=== PATIENT | male | born 1935 | race Caucasian/White ===

== ENCOUNTER 2018-06-07 11:36 | Emergency (ER) | payer OTHER ==
[2018-06-07] MEDS ORDERED: DIAZEPAM 2 MG TABLET ONE (12:48)
--- NOTE | 2018-06-07 13:22 | EDPHYS ---
Physician Documentation [facility] Name: Jagdish Preston Age: 82 yrs Sex: Male : 1935 Arrival Date: 06/07/2018 Time: 11:39 Bed 15 Private MD: ED Physician Stefaon Serna HPI: 06/07 12:36 This 82 yrs old Male presents to ER via Ambulatory with complaints of pm1 Anxiety, Urinary Problem. 12:36 The patient presents to the emergency department with anxiety, over upcoming radiation pm1 therapy for prostate cancer. Onset: The symptoms/episode began/occurred 1 year(s) ago. Past psychiatric history: Prior diagnosis: Anxiety, Psychiatric medications include: Zoloft. Associated signs and symptoms: Pertinent negatives: abdominal pain, chest pain, fever, headache, nausea, shortness of breath, vomiting. Severity of symptoms: in the emergency department the symptoms have resolved yesterday, Pain is currently a 0 / 10. The patient has experienced similar episodes in the past, chronically. The patient has been recently seen by a physician: the patient's primary care provider, prescribed Zoloft for his anxiety. 12:36 Patient able to urinate. Patient urinated prior to coming to ER bed. pm1 Historical: - Allergies: 11:51 No Known Allergies; aa5 - PMHx: 11:51 Anxiety; Hyperlipidemia; Hypertension; aa5 - PSHx: 11:51 Heart bypass; Hernia repair; cataracts; aa5 - Immunization history:: Pneumococcal vaccine is up to date, Flu vaccine is up to date. - Social history:: Smoking status: Patient/guardian denies using tobacco. - Ebola Screening: : No symptoms or risks identified at this time. ROS: 12:36 Constitutional: Negative for fever, chills, and weight loss, Eyes: Negative for injury, pm1 pain, redness, and discharge, ENT: Negative for injury, pain, and discharge, Neck: Negative for injury, pain, and swelling, Cardiovascular: Negative for chest pain, palpitations, and edema, Respiratory: Negative for shortness of breath, cough, wheezing, and pleuritic chest pain, Abdomen/GI: Negative for abdominal pain, nausea, vomiting, diarrhea, and constipation, Back: Negative for injury and pain, : Negative for injury, bleeding, discharge, and swelling, MS/Extremity: Negative for injury and deformity, Skin: Negative for injury, rash, and discoloration. 12:36 Neuro: Negative for headache, weakness, numbness, tingling, and seizure. 12:36 Psych: Positive for anxiety, Negative for depression, insomnia. Exam: 12:36 Constitutional: This is a well developed, well nourished patient who is awake, alert, pm1 and in no acute distress. Head/Face: Normocephalic, atraumatic. Eyes: Pupils equal round and reactive to light, extra-ocular motions intact. Lids and lashes normal. Conjunctiva and sclera are non-icteric and not injected. Cornea within normal limits. Periorbital areas with no swelling, redness, or edema. ENT: Nares patent. No nasal discharge, no septal abnormalities noted. Tympanic membranes are normal and external auditory canals are clear. Oropharynx with no redness, swelling, or masses, exudates, or evidence of obstruction, uvula midline. Mucous membranes moist. Neck: Trachea midline, no thyromegaly or masses palpated, and no cervical lymphadenopathy. Supple, full range of motion without nuchal rigidity, or vertebral point tenderness. No Meningismus. Chest/axilla: Normal chest wall appearance and motion. Nontender with no deformity. No lesions are appreciated. Cardiovascular: Regular rate and rhythm with a normal S1 and S2. No gallops, murmurs, or rubs. Normal PMI, no JVD. No pulse deficits. Respiratory: Lungs have equal breath sounds bilaterally, clear to auscultation and percussion. No rales, rhonchi or wheezes noted. No increased work of breathing, no retractions or nasal flaring. Abdomen/GI: Soft, non-tender, with normal bowel sounds. No distension or tympany. No guarding or rebound. No evidence of tenderness throughout. Back: No spinal tenderness. No costovertebral tenderness. Full range of motion. Skin: Warm, dry with normal turgor. Normal color with no rashes, no lesions, and no evidence of cellulitis. MS/ Extremity: Pulses equal, no cyanosis. Neurovascular intact. Full, normal range of motion. 12:36 Neuro: Orientation: is normal, Motor: is normal, moves all fours, Gait: is steady, at a normal pace, without difficulty. 12:36 Psych: Behavior/mood is pleasant, cooperative, Affect is calm, Oriented to person, place, time. Vital Signs: 11:52 BP 165 / 84; Pulse 85; Resp 16 S; Temp 97.4(TE); Pulse Ox 97% on R/A; Weight 79.38 kg aa5 (R); Height 5 ft. 10 in. (177.80 cm) (R); Pain 0/10; 13:03 BP 142 / 71; Pulse 80; Resp 16; Temp 97.8; Pulse Ox 99% on R/A; Pain 0/10; ch 11:52 Body Mass Index 25.11 (79.38 kg, 177.80 cm) aa5 MDM: 12:18 Patient medically screened. pm1 12:50 Data reviewed: vital signs. Data interpreted: Pulse oximetry: on room air is 97 %. pm1 Interpretation: normal. 12:52 ED course: Patient does not want any work up. He states that is here just for a pm1 prescription of medication for his anxiety. He has recently been placed on sertraline by his PCP and he does not feel that it is working and he feels that it is actually making it harder for him to urinate. He tried one of his friend's Xanax and it worked well for him. He requested a prescription for it. 13:21 Counseling: I had a detailed discussion with the patient and/or guardian regarding: the pm1 historical points, exam findings, and any diagnostic results supporting the discharge/admit diagnosis, the need for outpatient follow up, to return to the emergency department if symptoms worsen or persist or if there are any questions or concerns that arise at home. Administered Medications: 13:06 Not Given (Patient Refused): Valium 2 mg PO once ch Disposition: 17:53 Co-signature as Attending Physician, Stefano Serna MD. ma2 Disposition: 06/07/18 13:21 Discharged to Home. Impression: Acute stress reaction. - Condition is Stable. - Discharge Instructions: Stress and Stress Management. - Prescriptions for Valium 2 mg Oral Tablet - take 1 tablet by ORAL route every 8 hours As needed; 10 tablet. - Medication Reconciliation Form, Thank You Letter, Prescription Opioid Use form. - Follow up: Emergency Department; When: As needed; Reason: Worsening of condition. Follow up: Private Physician; When: 2 - 3 days; Reason: Recheck today's complaints, Continuance of care, Re-evaluation by your physician. - Problem is new. - Symptoms have improved. Signatures: Cris Dimas RN RN Clarisse Armstrong RN RN aa5 Warren Pisano, DIRECTOR MEDICAL ECONOMICS DIRECTOR MEDICAL ECONOMICS pm1 Stefano Serna MD MD ma2 Corrections: (The following items were deleted from the chart) 13:29 13:21 06/07/2018 13:21 Discharged to Home. Impression: Acute stress reaction. Condition ch is Stable. Forms are Medication Reconciliation Form, Thank You Letter, Antibiotic Education, Prescription Opioid Use. Follow up: Emergency Department; When: As needed; Reason: Worsening of condition. Follow up: Private Physician; When: 2 - 3 days; Reason: Recheck today's complaints, Continuance of care, Re-evaluation by your physician. Problem is new. Symptoms have improved. pm1
--- NOTE | 2018-06-07 13:22 | ER ---
Nurse's Notes [facility] Name: Jagdish Preston Age: 82 yrs Sex: Male : 1935 Arrival Date: 06/07/2018 Time: 11:39 Bed 15 Private MD: Diagnosis: Acute stress reaction Presentation: 06/07 11:44 Presenting complaint: Patient states: "My blood pressure has been high up to 177/77 and [facility]5 [facility] I've been having anxiety attacks but the medicine they gave me just knocks me out". Pt states "I have trouble urinating in the mornings and it's because of my anxiety so If you can just get my anxiety under control so I can start my prostate radiation treatments on Saturday I should be fine". 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 Transition of care: patient was not received from another setting of care. Onset of symptoms was 2018. Risk Assessment: Do you want to hurt yourself or someone else? Patient reports no desire to harm self or others. Initial Sepsis Screen: Does the patient meet any 2 criteria? No. Patient's initial sepsis screen is negative. Does the patient have a suspected source of infection? No. Patient's initial sepsis screen is negative. Care prior to arrival: None. 11:44 Method Of Arrival: Ambulatory aa5 11:44 Acuity: KARI 3 aa5 Historical: - Allergies: 11:51 No Known Allergies; aa5 - PMHx: 11:51 Anxiety; Hyperlipidemia; Hypertension; aa5 - PSHx: 11:51 Heart bypass; Hernia repair; cataracts; aa5 - Immunization history:: Pneumococcal vaccine is up to date, Flu vaccine is up to date. - Social history:: Smoking status: Patient/guardian denies using tobacco. - Ebola Screening: : No symptoms or risks identified at this time. Screenin:03 Abuse screen: Denies threats or abuse. Denies injuries from another. Nutritional ch screening: No deficits noted. Tuberculosis screening: No symptoms or risk factors identified. Fall Risk None identified. Assessment: 13:03 General: Appears in no apparent distress. comfortable, Behavior is calm, cooperative, ch appropriate for age. Pain: Denies pain. Neuro: No deficits noted. Level of Consciousness is awake, alert, obeys commands, Oriented to person, place, time, situation. Cardiovascular: No deficits noted. Respiratory: No deficits noted. GI: No deficits noted. : Reports difficulty urinating, mainly when anxious. EENT: No signs and/or symptoms were reported regarding the EENT system. Derm: Skin is intact, Skin is pink, warm \\T\\ dry. Musculoskeletal: No signs and/or symptoms reported regarding the musculoskeletal system. 13:05 Reassessment: Patient appears in no apparent distress at this time. pt refuses valium, ch states he must drive. pt declines testing or labs at this time, states he just needs a prescription. Vital Signs: 11:52 BP 165 / 84; Pulse 85; Resp 16 S; Temp 97.4(TE); Pulse Ox 97% on R/A; Weight 79.38 kg aa5 (R); Height 5 ft. 10 in. (177.80 cm) (R); Pain 0/10; 13:03 BP 142 / 71; Pulse 80; Resp 16; Temp 97.8; Pulse Ox 99% on R/A; Pain 0/10; ch 11:52 Body Mass Index 25.11 (79.38 kg, 177.80 cm) aa5 ED Course: 11:39 Patient arrived in ED. mr 11:44 Arm band placed on. aa5 11:51 Triage completed. aa5 11:55 Warren Pisano NP is PHCP. pm1 11:55 Stefano Serna MD is Attending Physician. pm1 12:08 Cris Dimas, SILKE is Primary Nurse. ch 13:03 No apparent distress. Resting quietly. ch 13:03 Patient has correct armband on for positive identification. Bed in low position. Call light in reach. Side rails up X 1. Adult w/ patient. Pulse ox on. NIBP on. PO fluids given. 13:03 No provider procedures requiring assistance completed. Patient did not have IV access ch during this emergency room visit. Administered Medications: 13:06 Not Given (Patient Refused): Valium 2 mg PO once ch Outcome: 13:21 Discharge ordered by . pm1 13:28 Discharged to home ambulatory, with family. 13:28 Condition: stable 13:28 Discharge instructions given to patient, family, Instructed on discharge instructions, follow up and referral plans. no drinking with medication, no driving heavy equipment, medication usage, Demonstrated understanding of instructions, follow-up care, medications, Prescriptions given X 1. 13:29 Patient left the ED. Signatures: Cris Dimas RN RN Marie Aden ArmstrongClarisse stevens RN RN aa5 Warren Pisano, KEVIN FUR VAULT ATTENDANT pm1 Corrections: (The following items were deleted from the chart) 13:52 Discharged to home ambulatory, with family, [facility] 13:52 Condition: stable [facility] 13:52 Discharge instructions given to patient, family, Instructed on discharge instructions, follow up and referral plans. no drinking with medication, no driving heavy equipment, medication usage, Demonstrated understanding of instructions, follow-up care, medications, Prescriptions given X 1,
== END 2018-06-07 13:29 | disposition home or self-care (01) ==
LOC: ER 11:36
DX: F43.0 Acute stress reaction (principal); I10 Essential (primary) hypertension; Z85.46 Personal history of malignant neoplasm of prostate
CPT/HCPCS: 99283

== ENCOUNTER 2018-09-01 20:12 | Emergency (ER) | payer OTHER ==
[2018-09-01] MEDS ORDERED: MAGNE/ALUM HYDROXD 30 ML UCUP ONE (20:59)
[2018-09-01 21:49] LABS: Urine Bacteria <20 /HPF (NONE SEEN); Urine Culture Reflex Order REFLEXED; Urine RBC NONE SEEN /HPF (NONE SEEN)
[2018-09-01 21:52] LABS: Urine Blood NEGATIVE (NEG); Urine Glucose NEGATIVE (NEG); Urine Protein NEGATIVE (NEG); Urine Specific Gravity <1.005 (1.005-1.030)
--- NOTE | 2018-09-01 22:50 | ER ---
Nurse's Notes [facility] Name: Jagdish Preston Age: 82 yrs Sex: Male : 1935 Arrival Date: 09/01/2018 Time: 20:18 Bed 25 Private MD: Diagnosis: Lower abdominal pain, unspecified;Dysuria Presentation: 09/01 20:43 Presenting complaint: Patient states: i have abdominal pain/burning sensation on my mg2 stomach since noontime. denies vomiting, nausea. i took azo since yesterday and today the pain starts. Transition of care: patient was not received from another setting of care. Onset of symptoms was September 01, 2018. Risk Assessment: Do you want to hurt yourself or someone else? Patient reports no desire to harm self or others. Initial Sepsis Screen: Does the patient meet any 2 criteria? No. Patient's initial sepsis screen is negative. Does the patient have a suspected source of infection? No. Patient's initial sepsis screen is negative. Care prior to arrival: None. 20:43 Method Of Arrival: Ambulatory mg2 20:43 Acuity: KARI 3 mg2 Historical: - Allergies: 20:49 No Known Allergies; mg2 - Home Meds: 20:49 Simvastatin Oral [Active]; tamsulosin oral oral [Active]; levothyroxine oral [Active]; mg2 Potassium Chloride Oral [Active]; Benadryl Allergy oral oral [Active]; - PMHx: 20:49 Anxiety; Hyperlipidemia; Hypertension; Hypothyroidism; prostate cancer; mg2 - Immunization history:: Flu vaccine is up to date. - Social history:: Smoking status: Patient/guardian denies using tobacco, Patient/guardian denies using alcohol, street drugs, IV drugs. - Ebola Screening: : No symptoms or risks identified at this time. Screenin:49 Abuse screen: Denies threats or abuse. Denies injuries from another. Nutritional mg2 screening: No deficits noted. Tuberculosis screening: No symptoms or risk factors identified. Fall Risk None identified. Assessment: 21:44 General: Appears in no apparent distress. comfortable, Behavior is calm, cooperative. mg2 Pain: Complains of pain in abdomen Pain does not radiate. Pain currently is 1 out of 10 on a pain scale. Quality of pain is described as burning, Pain began gradually. Neuro: Level of Consciousness is awake, alert, obeys commands, Oriented to person, place, time, situation. Cardiovascular: Capillary refill < 3 seconds Patient's skin is warm and dry. Respiratory: Airway is patent Respiratory effort is even, unlabored, Respiratory pattern is regular, symmetrical. GI: Bowel sounds present X 4 quads. Abd is soft and non tender. : No signs and/or symptoms were reported regarding the genitourinary system. : Reports burning with urination. EENT: No signs and/or symptoms were reported regarding the EENT system. Derm: Skin is intact, is healthy with good turgor, Skin is pink, warm \T\ dry. normal. Musculoskeletal: No signs and/or symptoms reported regarding the musculoskeletal system. 23:09 Reassessment: Patient states feeling better. Patient states symptoms have improved. mg2 Vital Signs: 20:46 BP 154 / 74; Pulse 77; Resp 18; Temp 98.3; Pulse Ox 98% on R/A; Weight 73.48 kg; Height mg2 5 ft. 10 in. (177.80 cm); Pain 3/10; 22:15 BP 144 / 64; Pulse 80; Resp 18; Temp 98.2; Pulse Ox 100% on R/A; mg2 23:09 BP 135 / 78; Pulse 81; Resp 18; Temp 98(O); Pulse Ox 100% on R/A; Pain 1/10; mg2 20:46 Body Mass Index 23.24 (73.48 kg, 177.80 cm) mg2 ED Course: 20:18 Patient arrived in ED. es 20:23 Ross Roche MD is Attending Physician. gs 20:24 Mike Reynolds RN is Primary Nurse. mg2 20:45 Triage completed. mg2 20:49 Arm band placed on left wrist. mg2 20:49 Patient has correct armband on for positive identification. Pulse ox on. NIBP on. Door mg2 closed. Warm blanket given. 21:37 Urine Microscopic Only Sent. lt1 21:45 No provider procedures requiring assistance completed. Patient did not have IV access mg2 during this emergency room visit. Administered Medications: 20:46 Drug: Maalox Suspension (200 mg-200 mg-20 mg/5 mL) 30 ml Route: PO; cc3 22:15 Follow up: Response: No adverse reaction; Marked relief of symptoms mg2 Outcome: 22:50 Discharge ordered by . gs 23:09 Discharged to home ambulatory. mg2 23:09 Condition: stable 23:09 Discharge instructions given to patient, Instructed on discharge instructions, follow up and referral plans. Demonstrated understanding of instructions, follow-up care. 23:10 Patient left the ED. mg2 Signatures: Mylene Valderrama Gregory, MD MD gs Gardose, Michele, RN RN mg2 Yessi De León 3 Susu English 1
--- NOTE | 2018-09-01 22:50 | EDPHYS ---
Physician Documentation [facility] Name: Jagdish Preston Age: 82 yrs Sex: Male : 1935 Arrival Date: 09/01/2018 Time: 20:18 Bed 25 Private MD: ED Physician Ross Roche HPI: 09/01 23:34 This 82 yrs old Male presents to ER via Ambulatory with complaints of gs Abdominal Pain. 23:34 The patient presents with abdominal pain in the upper abdomen. Onset: The gs symptoms/episode began/occurred gradually, after taking medicine for dysuria,. Associated signs and symptoms: Pertinent negatives: nausea and vomiting, blood in stools, chest pain, fever. The symptoms are described as burning. Modifying factors: The symptoms are alleviated by nothing, the symptoms are aggravated by nothing. Severity of pain: At its worst the pain was mild in the emergency department the pain is unchanged. The patient has experienced similar episodes in the past, a few times. Historical: - Allergies: 20:49 No Known Allergies; mg2 - Home Meds: 20:49 Simvastatin Oral [Active]; tamsulosin oral oral [Active]; levothyroxine oral [Active]; mg2 Potassium Chloride Oral [Active]; Benadryl Allergy oral oral [Active]; - PMHx: 20:49 Anxiety; Hyperlipidemia; Hypertension; Hypothyroidism; prostate cancer; mg2 - Immunization history:: Flu vaccine is up to date. - Social history:: Smoking status: Patient/guardian denies using tobacco, Patient/guardian denies using alcohol, street drugs, IV drugs. - Ebola Screening: : No symptoms or risks identified at this time. ROS: 23:34 All other systems are negative. gs Exam: 23:34 Head/Face: Normocephalic, atraumatic. Eyes: Pupils equal round and reactive to light, gs extra-ocular motions intact. Lids and lashes normal. Conjunctiva and sclera are non-icteric and not injected. Cornea within normal limits. Periorbital areas with no swelling, redness, or edema. ENT: Nares patent. No nasal discharge, no septal abnormalities noted. Tympanic membranes are normal and external auditory canals are clear. Oropharynx with no redness, swelling, or masses, exudates, or evidence of obstruction, uvula midline. Mucous membranes moist. Neck: Trachea midline, no thyromegaly or masses palpated, and no cervical lymphadenopathy. Supple, full range of motion without nuchal rigidity, or vertebral point tenderness. No Meningismus. Chest/axilla: Normal chest wall appearance and motion. Nontender with no deformity. No lesions are appreciated. Cardiovascular: Regular rate and rhythm with a normal S1 and S2. No gallops, murmurs, or rubs. Normal PMI, no JVD. No pulse deficits. Respiratory: Lungs have equal breath sounds bilaterally, clear to auscultation and percussion. No rales, rhonchi or wheezes noted. No increased work of breathing, no retractions or nasal flaring. Abdomen/GI: Soft, non-tender, with normal bowel sounds. No distension or tympany. No guarding or rebound. No evidence of tenderness throughout. Back: No spinal tenderness. No costovertebral tenderness. Full range of motion. Skin: Warm, dry with normal turgor. Normal color with no rashes, no lesions, and no evidence of cellulitis. MS/ Extremity: Pulses equal, no cyanosis. Neurovascular intact. Full, normal range of motion. Neuro: Awake and alert, GCS 15, oriented to person, place, time, and situation. Cranial nerves II-XII grossly intact. Motor strength 5/5 in all extremities. Sensory grossly intact. Cerebellar exam normal. Normal gait. 23:34 Constitutional: The patient appears alert, awake. Vital Signs: 20:46 BP 154 / 74; Pulse 77; Resp 18; Temp 98.3; Pulse Ox 98% on R/A; Weight 73.48 kg; Height mg2 5 ft. 10 in. (177.80 cm); Pain 3/10; 22:15 BP 144 / 64; Pulse 80; Resp 18; Temp 98.2; Pulse Ox 100% on R/A; mg2 23:09 BP 135 / 78; Pulse 81; Resp 18; Temp 98(O); Pulse Ox 100% on R/A; Pain 1/10; mg2 20:46 Body Mass Index 23.24 (73.48 kg, 177.80 cm) mg2 MDM: 20:41 Patient medically screened. 23:34 Data reviewed: vital signs, nurses notes. ED course: says just wants something for the gs burning and see if has uti, notified of urine results and better after maalox, refuses blood CT scan ekg. just wants to be discharge will follow up. 09/01 21:21 Order name: Urine Microscopic Only; Complete Time: 22:33 09/01 21:37 Order name: Urine Dipstick--Ancillary (enter results); Complete Time: 22:33 2 09/01 21:21 Order name: Urine Dipstick-Ancillary (obtain specimen); Complete Time: 21:37 09/01 21:51 Order name: Urine Culture EDCA Administered Medications: 20:46 Drug: Maalox Suspension (200 mg-200 mg-20 mg/5 mL) 30 ml Route: PO; cc3 22:15 Follow up: Response: No adverse reaction; Marked relief of symptoms mg2 Disposition: 09/01/18 22:50 Discharged to Home. Impression: Lower abdominal pain, unspecified, Dysuria. - Condition is Stable. - Discharge Instructions: Abdominal Pain, Adult, Dysuria. - Medication Reconciliation Form, Thank You Letter, Antibiotic Education, Prescription Opioid Use form. - Follow up: Private Physician; When: 1 - 2 days; Reason: Re-evaluation by your physician. Signatures: Dispatcher [employer] EDCA Ross Roche MD MD Mike Reynolds, SILKE RN [facility] [place]essi De León cc3 Corrections: (The following items were deleted from the chart) 23:10 22:50 09/01/2018 22:50 Discharged to Home. Impression: Lower abdominal pain, mg2 unspecified; Dysuria. Condition is Stable. Forms are Medication Reconciliation Form, Thank You Letter, Antibiotic Education, Prescription Opioid Use. Follow up: Private Physician; When: 1 - 2 days; Reason: Re-evaluation by your physician. gs
== END 2018-09-01 23:10 | disposition home or self-care (01) ==
LOC: ER 20:12
DX: R30.0 Dysuria (principal); I10 Essential (primary) hypertension; E03.9 Hypothyroidism, unspecified; E78.5 Hyperlipidemia, unspecified; F41.9 Anxiety disorder, unspecified; Z85.46 Personal history of malignant neoplasm of prostate
CPT/HCPCS: 81003; 81015; 87086; 87088; 99284